=== PATIENT | female | born 1980 | race Caucasian/White ===

== ENCOUNTER → 2018-02-09 | Outpatient (CLI) | payer OTHER ==
--- NOTE | 2018-02-09 15:44 | KCIC ---
MR of the left fourth finger HISTORY: Closed nondisplaced fracture of the left fourth middle phalanx. Injury on August 03, 2017. Cannot straighten. COMPARISON: None TECHNIQUE: Routine multiplanar sequences are obtained through the right fourth finger. FINDINGS: No bone lesion. No evidence of an acute fracture or malalignment. No bone destruction. No significant joint effusion. No abnormal soft tissue edema or fluid collection. The tendons are intact. No significant tendon sheath fluid. IMPRESSION: No significant abnormalities identified. Electronically signed by: Jasen Contreras MD (02/09/2018 3:41 PM) [id number]
== END | disposition home or self-care (01) ==
LOC: KCIC MRI 13:45
PROVIDERS: ATTEND Orthopaedic Surgery
DX: S62.655A Nondisplaced fracture of middle phalanx of left ring finger, initial encounter for closed fracture (principal); X58.XXXA Exposure to other specified factors, initial encounter; Y93.89 Activity, other specified; Y92.89 Other specified places as the place of occurrence of the external cause; Y99.8 Other external cause status
CPT/HCPCS: 73218